=== PATIENT | male | born 1990 | race Caucasian/White ===

== ENCOUNTER 2024-08-08 14:50 | Emergency (ER) | payer OTHER ==
[~2024-08-08] VITALS: Ht 182.9 cm; Wt 85.9 kg
[~2024-08-08 14:50] MED LIST: BUSP5TAB22
[2024-08-08 15:49] VITALS: BP 149/95; PULSE 111; RESP 18; TEMP 98.9; O2SAT 95
[2024-08-08] MEDS ORDERED: IBUP1TAB5 PO (16:41)
[2024-08-08] MEDS ORDERED: CEPH500C PO (16:41)
== END 2024-08-08 16:49 | disposition home or self-care (01) ==
LOC: ER 14:50
DX: S91.311A Laceration without foreign body, right foot, initial encounter (principal); Z88.2 Allergy status to sulfonamides; Z79.899 Other long term (current) drug therapy; W25.XXXA Contact with sharp glass, initial encounter; Y93.89 Activity, other specified; Y92.89 Other specified places as the place of occurrence of the external cause; Y99.8 Other external cause status
CPT/HCPCS: 12001